=== PATIENT | male | born 1955 | race Caucasian/White ===

== ENCOUNTER 2016-05-24 09:07 | Day surgery (SDC) | payer MEDICAID ==
[~2016-05-24 09:07] MED LIST: DILAUDID2 M1 PO
[2016-05-24 10:02] LABS: BASO % 0.1 % (0-2); EOSINOPHIL ABSOLUTE COUNT 0.2 tho/cmm (0.0-0.7); HGB-HEMOGLOBIN 11.7 gm/dl (13.5-17.0); IMMATURE GRANULOCYTES ABSOLUTE 0.03 tho/cmm (0-0.03); IMMATURE GRANULOCYTES PERCENT 0.2 % (0-0.3); LYMPH % 5.7 % (20-45); LYMPH ABSOLUTE COUNT 0.9 tho/cmm (0.8-4.5); MCH (MEAN CORPUSCULAR HGB) 28.8 pg (28.0-32.0); MCHC MEAN CORPUSCULAR HGB CONC 34.4 % (32.0-36.0); MCV (MEAN CELL VOLUME) 83.7 fl (82.0-96.0); MEAN PLATELET VOLUME 9.7 cmc (9.4-12.4); MONO % 5.9 % (0-12); MONOCYTE ABSOLUTE COUNT 0.9 tho/cmm (0.0-1.2); NEUTROPHIL ABSOLUTE COUNT 13.7 tho/cmm (1.6-8.0); NEUTROPHIL-AUTOMATED 13.7 tho/cmm (1.6-8.0); NEUTROPHILS % 87.1 % (40-80); PLATELET COUNT 279 tho/cmm (150-450); RED BLOOD COUNT 4.06 mil/cmm (4.40-5.70); RED CELL DISTRIBUTION WIDTH 13.7 % (12.4-16.4); WHITE BLOOD COUNT 15.7 tho/cmm (4.0-10.0)
[2016-05-24 10:09] LABS: INR 1.3 INR (0.9-1.1); PROTHROMBIN TIME 15.1 SECONDS (9.0-13.6)
== END 2016-05-24 14:30 ==
LOC: RADSP 09:07 → SHSC 09:09
PROVIDERS: Radiology Diagnostic Radiology
PROC: 0JH60XZ Insertion of Tunneled Vascular Access Device into Chest Subcutaneous Tissue and Fascia, Open Approach (ICD-10-PCS; principal; 2016-05-24)
PROC: 05HM33Z Insertion of Infusion Device into Right Internal Jugular Vein, Percutaneous Approach (ICD-10-PCS; 2016-05-24)
PROC: B543ZZA Ultrasonography of Right Jugular Veins, Guidance (ICD-10-PCS; 2016-05-24)
DX: C25.9 Malignant neoplasm of pancreas, unspecified (principal); Z98.890 Other specified postprocedural states
CPT/HCPCS: C1788; J0690; J2250; J2270; J2405; J3010; J7030

== ENCOUNTER 2016-05-31 04:43 | Observation (INO) | payer MEDICAID ==
[2016-05-31] MEDS ORDERED: ZOFRAN4 M2 PO (04:58)
[2016-05-31] MEDS ORDERED: COMPAZINE (04:58)
[2016-05-31 05:33] LABS: BASO % 0.1 % (0-2); EOS % 0.9 % (0-7); EOSINOPHIL ABSOLUTE COUNT 0.1 tho/cmm (0.0-0.7); HCT-HEMATOCRIT 31.5 % (36.0-53.5); HGB-HEMOGLOBIN 10.7 gm/dl (13.5-17.0); IMMATURE GRANULOCYTES ABSOLUTE 0.02 tho/cmm (0-0.03); IMMATURE GRANULOCYTES PERCENT 0.2 % (0-0.3); LYMPH % 9.7 % (20-45); LYMPH ABSOLUTE COUNT 0.9 tho/cmm (0.8-4.5); MCH (MEAN CORPUSCULAR HGB) 28.4 pg (28.0-32.0); MCV (MEAN CELL VOLUME) 83.6 fl (82.0-96.0); MONO % 9.7 % (0-12); MONOCYTE ABSOLUTE COUNT 0.9 tho/cmm (0.0-1.2); NEUTROPHIL ABSOLUTE COUNT 7.1 tho/cmm (1.6-8.0); NEUTROPHIL-AUTOMATED 7.1 tho/cmm (1.6-8.0); NEUTROPHILS % 79.4 % (40-80); PLATELET COUNT 191 tho/cmm (150-450); RED BLOOD COUNT 3.77 mil/cmm (4.40-5.70); RED CELL DISTRIBUTION WIDTH 13.5 % (12.4-16.4); WHITE BLOOD COUNT 8.9 tho/cmm (4.0-10.0)
[2016-05-31 06:04] LABS: ALB/GLOB RATIO 0.7 (0.8-2.0); ALBUMIN 2.9 g/dl (3.5-5.0); ALKALINE PHOSPHATASE 194 U/L (33-138); ALT/SGPT 57 U/L (12-78); AMYLASE 26 U/L (20-90); ANION GAP 10 mmol/L (0-20); AST/SGOT 35 U/L (10-40); BILIRUBIN,TOTAL 0.9 mg/dl (0.0-1.5); BLOOD UREA NITROGEN 10 mg/dl (6-24); CALCIUM 8.5 mg/dl (8.5-10.5); CARBON DIOXIDE-VENOUS 26 mmol/L (22-32); CHLORIDE 99 mmol/l (96-110); CREATININE 0.62 mg/dl (0.60-1.30); GLUCOSE 120 mg/dL (70-110); LIPASE 123 U/L (73-393); POTASSIUM 4.3 mmol/L (3.7-5.1); SODIUM 131 mmol/L (135-145); eGFR VALUE FOR BLACK >90 mL/Min
[2016-05-31 06:19] LABS: URINE BILIRUBIN NEGATIVE (NEG); URINE BLOOD NEGATIVE (NEG); URINE GLUCOSE (UA) NEGATIVE (NEG); URINE KETONE NEGATIVE (NEG); URINE LEUKOCYTE ESTERASE NEGATIVE (NEG); URINE NITRITE NEGATIVE (NEG); URINE PROTEIN NEGATIVE (NEG)
[2016-05-31 06:20] LABS: URINE APPEARANCE CLEAR; URINE COLOR YELLOW
[2016-05-31 09:23] LABS: C-REACTIVE PROTEIN 6.1 mg/dl (0-0.9); MAGNESIUM 2.2 mg/dl (1.3-2.6)
[2016-05-31 09:26] LABS: TSH-THYROID STIMULATING HORM. 0.5 uIU/ml (0.40-3.80)
[2016-05-31 10:51] LABS: PROCALCITONIN 0.26 ng/ml (0.05-0.09)
[2016-05-31 20:28] LABS: URINE APPEARANCE CLEAR; URINE BILIRUBIN NEGATIVE (NEG); URINE BLOOD NEGATIVE (NEG); URINE COLOR YELLOW; URINE GLUCOSE (UA) NEGATIVE (NEG); URINE KETONE NEGATIVE (NEG); URINE LEUKOCYTE ESTERASE NEGATIVE (NEG); URINE NITRITE NEGATIVE (NEG); URINE PROTEIN NEGATIVE (NEG)
[2016-06-01 05:17] LABS: BASO % 0.1 % (0-2); EOS % 1.9 % (0-7); EOSINOPHIL ABSOLUTE COUNT 0.2 tho/cmm (0.0-0.7); HCT-HEMATOCRIT 29.5 % (36.0-53.5); HGB-HEMOGLOBIN 9.8 gm/dl (13.5-17.0); IMMATURE GRANULOCYTES ABSOLUTE 0.01 tho/cmm (0-0.03); IMMATURE GRANULOCYTES PERCENT 0.1 % (0-0.3); LYMPH % 11.2 % (20-45); LYMPH ABSOLUTE COUNT 1.2 tho/cmm (0.8-4.5); MCH (MEAN CORPUSCULAR HGB) 28.2 pg (28.0-32.0); MCHC MEAN CORPUSCULAR HGB CONC 33.2 % (32.0-36.0); MEAN PLATELET VOLUME 9.2 cmc (9.4-12.4); MONOCYTE ABSOLUTE COUNT 0.9 tho/cmm (0.0-1.2); NEUTROPHILS % 77.7 % (40-80); PLATELET COUNT 175 tho/cmm (150-450); RED BLOOD COUNT 3.47 mil/cmm (4.40-5.70); WHITE BLOOD COUNT 10.3 tho/cmm (4.0-10.0)
[2016-06-01 05:25] LABS: ANION GAP 12 mmol/L (0-20); BLOOD UREA NITROGEN 10 mg/dl (6-24); CALCIUM 7.8 mg/dl (8.5-10.5); CARBON DIOXIDE-VENOUS 21 mmol/L (22-32); CHLORIDE 105 mmol/l (96-110); CREATININE 0.55 mg/dl (0.60-1.30); GLUCOSE 98 mg/dL (70-110); POTASSIUM 4.4 mmol/L (3.7-5.1); SODIUM 134 mmol/L (135-145); eGFR VALUE FOR BLACK >90 mL/Min
--- NOTE | 2016-06-01 11:27 | NUR ---
Pt up in chair, feels better with IV meds converted to oral. Reports being outside twice today. Pt signed community dnr/dni form, copies to pt, copy to oncology and pts chart. Pt less anxious today. Support given.
[2016-06-02 04:20] LABS: BASO % 0.2 % (0-2); EOS % 2.9 % (0-7); EOSINOPHIL ABSOLUTE COUNT 0.3 tho/cmm (0.0-0.7); HCT-HEMATOCRIT 28.7 % (36.0-53.5); HGB-HEMOGLOBIN 9.8 gm/dl (13.5-17.0); IMMATURE GRANULOCYTES ABSOLUTE 0.03 tho/cmm (0-0.03); IMMATURE GRANULOCYTES PERCENT 0.3 % (0-0.3); LYMPH % 9.8 % (20-45); LYMPH ABSOLUTE COUNT 1.1 tho/cmm (0.8-4.5); MCH (MEAN CORPUSCULAR HGB) 28.6 pg (28.0-32.0); MCHC MEAN CORPUSCULAR HGB CONC 34.1 % (32.0-36.0); MCV (MEAN CELL VOLUME) 83.7 fl (82.0-96.0); MEAN PLATELET VOLUME 9.1 cmc (9.4-12.4); MONOCYTE ABSOLUTE COUNT 0.8 tho/cmm (0.0-1.2); NEUTROPHILS % 79.8 % (40-80); PLATELET COUNT 184 tho/cmm (150-450); RED BLOOD COUNT 3.43 mil/cmm (4.40-5.70); RED CELL DISTRIBUTION WIDTH 13.9 % (12.4-16.4); WHITE BLOOD COUNT 11.2 tho/cmm (4.0-10.0)
[2016-06-02 04:22] LABS: INR 1.3 INR (0.9-1.1); PROTHROMBIN TIME 15.5 SECONDS (9.0-13.6)
[2016-06-02 04:32] LABS: ALB/GLOB RATIO 0.8 (0.8-2.0); ALBUMIN 2.9 g/dl (3.5-5.0); ALKALINE PHOSPHATASE 164 U/L (33-138); ALT/SGPT 45 U/L (12-78); ANION GAP 11 mmol/L (0-20); AST/SGOT 27 U/L (10-40); BILIRUBIN,TOTAL 1.2 mg/dl (0.0-1.5); BLOOD UREA NITROGEN 7 mg/dl (6-24); CARBON DIOXIDE-VENOUS 24 mmol/L (22-32); CHLORIDE 103 mmol/l (96-110); CREATININE 0.63 mg/dl (0.60-1.30); GLUCOSE 116 mg/dL (70-110); SODIUM 134 mmol/L (135-145); eGFR VALUE FOR BLACK >90 mL/Min
[2016-06-02 04:47] LABS: POTASSIUM 3.5 mmol/L (3.7-5.1)
[2016-06-03] MEDS ORDERED: ASPIRIN81 M1 PO (13:24)
[2016-06-03] MEDS ORDERED: VALIUM5 M1 PO (13:26)
[2016-06-03] MEDS ORDERED: ZOFRAN4 M2 PO (13:29)
== END 2016-06-03 14:15 ==
LOC: EDMED 04:43 → EMR2 07:29 → 5WF 08:12
PROVIDERS: Emergency Medicine Emergency Medical Services; Physician Assistant Medical; Registered Nurse; ADMIT Hospitalist
DX: G89.3 Neoplasm related pain (acute) (chronic) (principal); C25.9 Malignant neoplasm of pancreas, unspecified; C78.7 Secondary malignant neoplasm of liver and intrahepatic bile duct; F41.9 Anxiety disorder, unspecified; R90.89 Other abnormal findings on diagnostic imaging of central nervous system; F17.200 Nicotine dependence, unspecified, uncomplicated; F12.90 Cannabis use, unspecified, uncomplicated; R11.0 Nausea; Z51.5 Encounter for palliative care; B19.20 Unspecified viral hepatitis C without hepatic coma; H53.9 Unspecified visual disturbance; H26.9 Unspecified cataract; D63.8 Anemia in other chronic diseases classified elsewhere; R19.7 Diarrhea, unspecified; E46 Unspecified protein-calorie malnutrition; I27.2 Other secondary pulmonary hypertension; I35.1 Nonrheumatic aortic (valve) insufficiency; I34.0 Nonrheumatic mitral (valve) insufficiency; Z66 Do not resuscitate; Z68.1 Body mass index [BMI] 19.9 or less, adult; Z98.890 Other specified postprocedural states
CPT/HCPCS: A9577; G0378; J1170; J1650; J2060; J2270; J2405; J7030